=== PATIENT | male | born 1980 | race Caucasian/White ===

== ENCOUNTER 2017-04-18 14:17 | Emergency (ER) | payer BC, OTHER ==
[2017-04-18] MEDS ORDERED: HYDROmorphone 1 MG/ML Syringe IM ONE (14:32)
[2017-04-18] MEDS ORDERED: HYDROmorphone 1 MG/ML Syringe IVPUSH ONE ×2 (14:36→15:33)
[2017-04-18] MEDS ORDERED: Sodium Chloride 0.9% 10 ML Syringe FLUSH PRN (14:36)
[2017-04-18 14:37] VITALS: BP 114/78
[2017-04-18] MEDS ORDERED: ceFAZolin 1,000 MG VIAL IVPUSH ONE (14:37)
[2017-04-18] MEDS ORDERED: cefTRIAXone 2 GM in Sodium Chloride 0.9% 100 ML IV ONE (14:50)
[2017-04-18] MEDS ORDERED: Ondansetron 4 MG/2 ML SDV IVPUSH ONE (14:54)
[2017-04-18] MEDS ORDERED: Ondansetron 4 MG/2 ML SDV ONE (14:57)
[2017-04-18] MEDS ORDERED: Sodium Chloride 0.9% 1,000 ML ONE (15:03)
[2017-04-18] MEDS ORDERED: Lidocaine 1% 50 ML MDV ONE (15:38)
[2017-04-18] MEDS ORDERED: Lidocaine 1% 20 ML MDV INJECT ONE (16:18)
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
[2017-04-18] MEDS ORDERED: Acetaminophen/HYDROcodone 325-10 MG Tab PO ONE (17:07)
--- NOTE | 2017-04-20 07:37 | CR ---
Right fifth finger: Four views of the right fifth finger were obtained. Soft tissue injury seen distally. Displaced fracture identified within the tuft of the distal phalanx. No additional bony abnormality is seen. Impression: 1. Displaced tuft fracture and soft tissue injury within the distal right fifth finger. Diagnostic code #3
== END 2017-04-18 17:27 | disposition home or self-care (01) ==
LOC: JD.ED 14:17
DX: S62.636B Displaced fracture of distal phalanx of right little finger, initial encounter for open fracture (principal); S67.21XA Crushing injury of right hand, initial encounter; S61.216A Laceration without foreign body of right little finger without damage to nail, initial encounter; Z79.899 Other long term (current) drug therapy; Z90.49 Acquired absence of other specified parts of digestive tract; W23.1XXA Caught, crushed, jammed, or pinched between stationary objects, initial encounter
CPT/HCPCS: 12002; 73140; 96365; 96375; 96376; 99284; A9270; J0696; J1170; J2405; J7030; J7050

== ENCOUNTER 2019-02-08 18:34 | Emergency (ER) | payer OTHER ==
[2019-02-08 18:57] VITALS: BP 138/97
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
[2019-02-08] MEDS ORDERED: Ondansetron 4 MG Tab.DIS PO ONE (19:36)
[2019-02-08] MEDS ORDERED: Lidocaine 1% 10 ML MDV INJECT ONE (19:39)
[2019-02-08] MEDS ORDERED: Bupivacaine 0.5% 30 ML SDV INJECT ONE (19:39)
[2019-02-08] MEDS ORDERED: Bupivacaine 0.5% 10 ML SDV ONE (19:43)
[2019-02-08] MEDS ORDERED: Bupivacaine 0.5% 10 ML SDV INJECT ONE (19:44)
--- NOTE | 2019-02-09 08:12 | CR ---
Left thumb: Three views of the left thumb were obtained. Comparison: No previous thumb or hand exam. Soft tissue injury is seen. On one view there is slight cortical irregularity within the base of the distal phalanx and difficult to completely exclude an essentially nondisplaced fracture. No proximal bony abnormality is seen. Impression: 1. Soft tissue injury. 2. Equivocal nondisplaced fracture involving the base of the distal phalanx. Diagnostic code #3
== END 2019-02-08 21:06 | disposition home or self-care (01) ==
LOC: JD.ED 18:34
DX: S61.122A Laceration with foreign body of left thumb with damage to nail, initial encounter (principal); Z79.899 Other long term (current) drug therapy; W26.0XXA Contact with knife, initial encounter
CPT/HCPCS: 12002; 73140; 99283; A9270; J2001; J3490